=== PATIENT | female | born 1965 | race Caucasian/White ===

== ENCOUNTER 2020-10-26 03:55 | Emergency (ER) | payer BC ==
[~2020-10-26] VITALS: Ht 162.6 cm; Wt 66.0 kg
[~2020-10-26 03:55] MED LIST: ACYCLOVIR200 MG; ACYCLOVIR400 MG PO; ALENDRONATE SOD70 MG PO; AZITHROMYCIN250 MG PO; BACLOFEN10 MG PO; BENADRYL25 MG PO; BENEFIBER1 EAC1 PO; BENEFIBER1 EAC2 PO; BENICAR20 MG PO; BENICAR5 MG PO; FAMCICLOVIR500 MG PO; IMITREX100 MG PO; LORTAB 10 MG-3473 ML PO; MACRODANTIN100 MG PO; MELATONIN3 MG PO; MIRALAX17 GM PO; MUCINEX1200 MG PO; NORCO 10-325 T1 EACH PO; NORCO 5-325 TA1 EACH PO; PRISTIQ ER50 MG PO; PROVENTIL HFA6.7 GM INH; TYLENOL EXTRA500 MG PO; ZITHROMAX250 MG PO; ZOFRAN ODT4 MG PO
[2020-10-26] MEDS ORDERED: TRAZODONE HCL50 MG PO (07:27)
[2020-10-26] MEDS ORDERED: VIIBRYD20 MG PO (07:28)
[2020-10-26] MEDS ORDERED: PROLIA60 MG/1 ML SUB-Q (07:29)
[2020-10-26] MEDS ORDERED: OSTERA TABLET1 EACH PO (07:29)
== END 2020-10-26 06:32 | disposition home or self-care (01) ==
LOC: ED 03:55
DX: F41.9 Anxiety disorder, unspecified (principal); F32.9 Major depressive disorder, single episode, unspecified; I10 Essential (primary) hypertension; Z87.891 Personal history of nicotine dependence; Z88.1 Allergy status to other antibiotic agents; Z88.2 Allergy status to sulfonamides; Z88.8 Allergy status to other drugs, medicaments and biological substances; Z88.5 Allergy status to narcotic agent; Z79.899 Other long term (current) drug therapy
CPT/HCPCS: 96372; 99283; J2060

== ENCOUNTER 2020-10-28 11:02 | Emergency (ER) | payer BC ==
[~2020-10-28] VITALS: Ht 162.6 cm; Wt 65.8 kg
[~2020-10-28 11:02] MED LIST changes: +OSTERA TABLET1 EACH PO; +PROLIA60 MG/1 ML SUB-Q; +TRAZODONE HCL50 MG PO; +VIIBRYD20 MG PO
--- OUTSIDE RECORDS SUMMARY | 2020-10-28 11:04 | XMS ---
PreManage Notification: KANNAN PHILIPPE Security Personal Coach Events No recent Security Events currently on file CRITERIA MET - [facility] - 2 Visits in 30 Days CARE PROVIDERS There are no care providers on record at this time. Angie has no Care Guidelines for this patient. Yamilet VISIT COUNT (12 MO.) 2 [facility] [place] H. TOTAL 2 NOTE: Visits indicate total known visits. ED/[facility] VISIT TRACKING (12 MO.) 10/28/2020 11:02 [facility] [place] TYPE: Emergency COMPLAINT: - SEIZURE 10/26/2020 03:55 [facility] [place] TYPE: Emergency COMPLAINT: - POSSIBLE BACK SPASMS INPATIENT VISIT TRACKING (12 MO.) No inpatient visits to display in this time frame [email or web address]
== END 2020-10-28 15:03 | disposition home or self-care (01) ==
LOC: ED 11:02
DX: M62.838 Other muscle spasm (principal); F43.9 Reaction to severe stress, unspecified; I10 Essential (primary) hypertension; Z87.891 Personal history of nicotine dependence; Z88.8 Allergy status to other drugs, medicaments and biological substances; Z88.2 Allergy status to sulfonamides; Z88.1 Allergy status to other antibiotic agents; Z88.5 Allergy status to narcotic agent; Z79.899 Other long term (current) drug therapy
CPT/HCPCS: 70450; 80048; 83735; 96374; 96376; 99285-25; J2060; J7030

== ENCOUNTER 2024-04-16 10:00 | Emergency (ER) | payer BC ==
[~2024-04-16] VITALS: Ht 162.6 cm; Wt 56.6 kg
[2024-04-16] MEDS ORDERED: ONDANSETRON 4 MG TAB ODT SL ONE (10:30)
[2024-04-16 10:47] LABS: BASOPHILS 0.4 % (0-2); EOSINOPHILS 3.2 % (0-6); HEMATOCRIT 40.5 % (35.0-50.0); HEMOGLOBIN 13.3 g/dL (12.0-18.0); LYMPHOCYTES 41.2 % (24-44); MCH 29.1 (27-36); MCHC 32.8 g/dl (30-36); MCV 88.8 fl (81-99); MONOCYTES 7.9 % (0-12); NEUTROPHILS 47.3 % (39-80); PLATELET COUNT 139 K/uL (140-440); RBC 4.57 M/ul (4.3-5.7); RDW 13.9 (10.5-15.0)
[2024-04-16 11:01] LABS: ALBUMIN 3.3 g/dL (3.4-5.0); ALBUMIN/GLOBULIN RATIO 1.14 (1.1-2.4); ANION GAP 8.8 (7-21); BILIRUBIN, TOTAL 0.4 ng/dL (0.2-1.0); BUN/CREATININE RATIO 39.39 (6.0-28.6); CALCIUM 8.5 mg/dL (8.5-10.1); CREATININE, SERUM 0.66 mg/dL (0.55-1.02); POTASSIUM 4.8 mmol/L (3.5-5.1); PROTEIN, TOTAL 6.2 g/dL (6.4-8.2)
[2024-04-16] MEDS ORDERED: ONDANSETRON ODT8 MG PO (13:12)
[2024-04-16] MEDS ORDERED: MECLIZINE HCL 25 MG TAB PO ONE (13:15)
[2024-04-16 13:35] VITALS: BP 111/78
[2024-04-16] MEDS ORDERED: TERBINAFINE HC250 MG PO (13:37)
[2024-04-16] MEDS ORDERED: ALAVERT10 M1 PO (13:38)
[2024-04-16] MEDS ORDERED: TRAZODONE HCL100 MG (13:39)
[2024-04-16] MEDS ORDERED: CLONAZEPAM1 MG PO (13:39)
== END 2024-04-16 13:35 | disposition home or self-care (01) ==
LOC: ED 10:00
PROVIDERS: Emergency Medicine
DX: H81.399 Other peripheral vertigo, unspecified ear (principal); I10 Essential (primary) hypertension; F43.10 Post-traumatic stress disorder, unspecified; Z79.899 Other long term (current) drug therapy; Z88.2 Allergy status to sulfonamides; Z88.1 Allergy status to other antibiotic agents; Z88.5 Allergy status to narcotic agent; Z91.018 Allergy to other foods; Z88.8 Allergy status to other drugs, medicaments and biological substances; Z87.891 Personal history of nicotine dependence
CPT/HCPCS: 36415; 70551; 80053; 85025; 99284-25; A9270

== ENCOUNTER 2024-05-20 19:30 | Emergency (ER) | payer OTHER, BC ==
[~2024-05-20] VITALS: Ht 162.6 cm; Wt 56.0 kg
[~2024-05-20 19:30] MED LIST changes: +ALAVERT10 M1 PO; +CLONAZEPAM1 MG PO; +ONDANSETRON ODT8 MG PO; +TERBINAFINE HC250 MG PO; +TRAZODONE HCL100 MG
[2024-05-20] MEDS ORDERED: ACETAMINOPHEN 500 MG TAB PO ONE (21:30)
[2024-05-20] MEDS ORDERED: IBUPROFEN 800 MG TAB PO ONE (22:15)
[2024-05-20 22:25] VITALS: BP 125/79
== END 2024-05-20 22:25 | disposition home or self-care (01) ==
LOC: ED 19:30
DX: S30.0XXA Contusion of lower back and pelvis, initial encounter (principal); S09.90XA Unspecified injury of head, initial encounter; I10 Essential (primary) hypertension; E21.3 Hyperparathyroidism, unspecified; M85.80 Other specified disorders of bone density and structure, unspecified site; Z90.49 Acquired absence of other specified parts of digestive tract; Z88.1 Allergy status to other antibiotic agents; Z88.2 Allergy status to sulfonamides; Z91.018 Allergy to other foods; Z88.5 Allergy status to narcotic agent; Z88.8 Allergy status to other drugs, medicaments and biological substances; Z88.3 Allergy status to other anti-infective agents; Z79.899 Other long term (current) drug therapy; W07.XXXA Fall from chair, initial encounter
CPT/HCPCS: 70450; 72131; 72192; 99283-25; A9270